=== PATIENT | female | born 1950 ===

== ENCOUNTER → 2019-05-25 | Outpatient (CLI) | payer MEDICARE ==
--- NOTE | 2019-05-27 10:13 | PE ---
EXAMINATION TYPE: PET CT fusion skull to thigh DATE OF EXAM: 05/25/2019 COMPARISON: None at this location Prior PET/CT: None HISTORY: Colorectal cancer TECHNIQUE: Following the intravenous administration of 11.984 mCi of F-18 FDG, whole body images are performed from the skull base to the midthigh. Images are reviewed on the computer in the coronal, axial, and sagittal planes. Reconstructed rotating images are created on independent workstation and reviewed on the computer. A localization and attenuation correction CT is performed in conjunction with the PET scan. DLP: 131.85 mGycm SCAN: Initial Blood glucose: 84 mg/dL Average Mediastinum SUV: 1.35 Average Liver SUV: 1.96 FINDINGS: NECK: No abnormal uptake THORAX: No abnormal uptake ABDOMEN: No abnormal uptake PELVIS: There is intense activity within the rectum with an SUV value of 11.91 compatible with the pa man's reported colorectal cancer. No suspicious metastatic disease is evident. Some mild uptake is within the mid sigmoid colon most likely can be normal uptake within the colon. Lesion is not exclude d. PET image 193, SUV value of 3.89. OSSEOUS STRUCTURES: No abnormal uptake LOCALIZATION CT: Ascending thoracic aorta at the level the main pulmonary artery is 3.0 cm. Main pulm onary artery the bifurcation is 1.9 cm. There is a 3.2 cm cyst at superior medial left kidney measuri ng 3.2 cm and 8 Hounsfield units. Fecal debris is scattered through the colon. No suspicious abdomina l or iliac chain adenopathy is evident. Perirectal adenopathy is noted, largest on left measuring 1.0 cm, image 231. This has an SUV value of 2.75. COMPARISON: None IMPRESSION: 1. Intense uptake within the rectum compatible with the patient's rectal cancer. 2. There is at least one enlarged perirectal lymph node couple smaller perirectal lymph nodes present . The largest lymph node has an SUV value 2.75 could be an early metastatic lesion. 3. Persistent metastatic lesions are not identified.
== END | disposition home or self-care (01) ==
LOC: RADPETMAIN 13:01
PROVIDERS: ATTEND Internal Medicine Gastroenterology
DX: C20 Malignant neoplasm of rectum (principal)
CPT/HCPCS: 78815; A9552

== ENCOUNTER → 2020-08-07 | Outpatient (CLI) | payer MEDICARE, BC | END | disposition home or self-care (01) | LOC: LABWHC1 12:11 | PROVIDERS: ATTEND Internal Medicine | DX: Z20.828 Contact with and (suspected) exposure to other viral communicable diseases (principal) | CPT/HCPCS: U0003; C9803 ==